=== PATIENT | male | born 1955 | race Caucasian/White ===

== ENCOUNTER 2016-10-14 07:37 | Day surgery (SDC) | payer OTHER ==
[~2016-10-14] VITALS: Ht 185.4 cm; Wt 96.5 kg
[2016-10-14] MEDS ORDERED: SODIUM CHLORIDE 0.9% 1,000 ML IV SCH (08:13)
[2016-10-14 08:33] VITALS: BP 123/78
[2016-10-14] MEDS ORDERED: GEMF600T3 PO (08:39)
[2016-10-14] MEDS ORDERED: OMEG1CAP2 PO (08:39)
[2016-10-14] MEDS ORDERED: FINA5TAB4 PO (08:39)
[2016-10-14] MEDS ORDERED: SILD50TA PO (08:39)
[2016-10-14] MEDS ORDERED: ALFU10TA PO (08:39)
[2016-10-14] MEDS ORDERED: METF850T2 PO (08:39)
[2016-10-14] MEDS ORDERED: MIDAZOLAM 1 MG/ML, 5ML ONE (09:29)
[2016-10-14] MEDS ORDERED: FENTANYL PF 100 MCG/2ML ONE (09:30)
== END 2016-10-14 12:10 | disposition home or self-care (01) ==
LOC: OUT 07:37
PROVIDERS: ATTEND Internal Medicine Gastroenterology
DX: C76.2 Malignant neoplasm of abdomen (principal); E11.9 Type 2 diabetes mellitus without complications; F41.9 Anxiety disorder, unspecified; Z86.010 Personal history of colon polyps; E55.9 Vitamin D deficiency, unspecified; Z85.46 Personal history of malignant neoplasm of prostate; Z90.49 Acquired absence of other specified parts of digestive tract; Z72.89 Other problems related to lifestyle
CPT/HCPCS: 49180; 77012; 88304; J2250; J3010; J7030; 88341; 88342; 99156; 99157; G0461